=== PATIENT | male | born 1955 | race Caucasian/White ===

== ENCOUNTER 2022-09-11 08:39 | Outpatient (CLI) | payer MEDICARE, SELFPAY ==
--- NOTE | 2022-09-28 18:57 | WPDSLEEPSTUD ---
Sleep Study Date of Study: 09/11/22 Ordering Provider: LJ Epps Interpreting Physician: Lindy More DO Sleep Study Type: Split Polysomnogram Height: 1.83 m Weight: 143.335 kg Body Mass Index: 42.8 Neck Circumference (inches): 19 [place]: 10 Reason for Sleep Study Witnessed apneas, daytime hypersomnia Sleep History The patient is a 67-year-old male with hypertension, benign prostatic hyperplasia and vitamin-D deficiency that had a sleep study ordered by his primary care for evaluation of sleep apnea. The patient frequently awakens from sleep short of breath. He occasionally awakens at night with heartburn, belching or cough. He constantly snores loudly enough that others complain. He occasionally has trouble sleeping when he has a cold. He occasionally wakes up gasping for air throughout the night. He frequently has breathing problems at night observed by himself or others. He occasionally sweats excessively at night. He occasionally has heart palpitations or irregular heartbeats during the night. He occasionally falls asleep during the day but never while driving. He denies sleep paralysis and cataplexy. He denies having trouble at school or work due to sleepiness. He rarely experiences vivid dreamlike scenes upon awakening or falling asleep. He denies feeling afraid of going to sleep. He rarely has nightmares. He occasionally remembers his dreams. He occasionally has thoughts racing through his mind. He rarely feels sad or depressed. He rarely has anxiety. He rarely has muscular tension. He occasionally notices parts of his body jerk. He occasionally kicks during the night. He rarely has crawling and aching feelings in his legs and rarely has leg pain during the night. He rarely grinds his teeth during sleep and never awakens with morning jaw pain. He is rarely bothered by pain during the day and rarely awakened by pain during the night. He occasionally wakes up feeling stiff in the morning. He rarely wakes up with sore or achy muscles. He occasionally wakes up with pain in the neck, spine or other joints. He goes to bed between 10-11 p.m. on both weekdays and weekends. He is able to fall asleep immediately. He wakes up 7-8 times throughout the night to change positions. He is able to fall back asleep immediately. He wakes up between 7-8 a.m. on both weekdays and weekends. He typically gets 8-9 hours of sleep per night. He will stay in bed for 15-30 minutes after waking up in the morning. He currently lives alone. He does not consume any caffeinated beverages within 2 hours of bedtime. He does not engage in physical exercise before bedtime. He will read and watch television before falling asleep. He will take naps in the afternoon or the evening and they are refreshing. He drinks 2-3 caffeinated beverages per day. He drinks less than 1 alcoholic beverage per day. He denies tobacco and recreational drug use. FORMERLY [facility] Past Medical History Medical History BPH (benign prostatic hyperplasia) HTN (hypertension) Morbid obesity with BMI of 40.0-44.9, adult LEONCIO (obstructive sleep apnea) Family History Family History Mother Family history of malignant neoplasm of cervix Patient's mother is , Onset Age: 76 Father Family history of dementia Family history of Alzheimer's disease, Onset Age: 78 Grandparent Family history of malignant neoplasm Other No family history of cardiovascular disease No family history of hypertension No family history of malignant neoplasm Social History Social History Smoking status: Never smoker Alcohol intake: current Lack of Transportation: No Lack of Food: Never True Current Housing: I Have Housing Concerned About Future Housing: Decline to Answer
[2022-09-28 19:16] VITALS: BMI 42.8
== END 2022-09-12 07:00 | disposition home or self-care (01) ==
LOC: ANHCSM 08:40
PROVIDERS: PCP Family Medicine; Visit Provider Nurse Practitioner
DX: G47.33 Obstructive sleep apnea (adult) (pediatric) (principal)
CPT/HCPCS: 95811

== ENCOUNTER 2023-10-20 11:07 | Outpatient (CLI) | payer MEDICARE, SELFPAY ==
--- NOTE | ~2023-10-20 | XR_ITS ---
XR knee RT 3V DATE: 10/20/2023 11:44 INDICATION: Anteromedial right knee pain. No injury. TECHNIQUE: [place] and standing AP and lateral views COMPARISON: None FINDINGS: There is severe loss of medial compartment joint space. There is periarticular spurring at all 3 compartments. There is mild suprapatellar knee joint effusion. No fracture, dislocation, periosteal reaction or bone destruction, radiopaque intra-articular loose b ricardo or chondrocalcinosis. 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 IMPRESSION: Tricompartment osteoarthritis, most severe at the medial compartmen t
== END 2023-10-20 11:08 ==
PROVIDERS: PCP Family Medicine; Visit Provider Family Medicine
DX: M17.11 Unilateral primary osteoarthritis, right knee (principal)
CPT/HCPCS: 73562